=== PATIENT | female | born 1970 | race American Indian/Alaskan Native ===

== ENCOUNTER 2019-06-09 14:03 | Inpatient (IN) | payer BC, OTHER ==
--- NOTE | 2019-06-09 15:22 | XRay Report ---
CHEST 1 VIEW INDICATION / CLINICAL INFORMATION: Chest Pain. COMPARISON: None available. FINDINGS: SUPPORT DEVICES: None. HEART / MEDIASTINUM: No significant abnormality. LUNGS / PLEURA: No significant pulmonary or pleural abnormality. No pneumothorax. ADDITIONAL FINDINGS: No significant additional findings. IMPRESSION: No acute pulmonary or pleural abnormality Signer Name: Manfred Zimmerman MD FACR Signed: 06/09/2019 3:18 PM Workstation Name: [id number]
[2019-06-09 15:23] LABS: Basophils # (Auto) 0.1 K/mm3 (0.0-0.1); Basophils % (Auto) 0.9 % (0.0-1.8); Eosinophils # (Auto) 0.2 K/mm3 (0.0-0.4); Hematocrit 46.4 % (30.3-42.9); Hemoglobin 14.9 gm/dl (10.1-14.3); Lymphocytes # (Auto) 3.6 K/mm3 (1.2-5.4); Lymphocytes % (Auto) 47.3 % (13.4-35.0); Mean Corpuscular HGB Conc 32 % (30-34); Mean Corpuscular Volume 82 fl (79-97); Monocytes # (Auto) 0.6 K/mm3 (0.0-0.8); Monocytes % (Auto) 8.3 % (0.0-7.3); Red Blood Count 5.65 M/mm3 (3.65-5.03)
[2019-06-09 15:25] LABS: Platelet Count 170 K/mm3 (140-440)
[2019-06-09 15:38] LABS: BUN/Creatinine Ratio 16; Blood Urea Nitrogen 13 mg/dL (7-17); Calcium 9.5 mg/dL (8.4-10.2); Hemolysis Index 31
[2019-06-09] MEDS ORDERED: NORCO 5/325 PO ONE (15:56)
[2019-06-09] MEDS ORDERED: APRESOLINE IV ONE (15:57)
--- NOTE | 2019-06-09 16:00 | Emergency Department Report ---
ED Chest Pain HPI - General Chief Complaint: Chest Pain Stated Complaint: CHEST/BACK PAIN Time Seen by Provider: 06/09/19 15:21 Source: patient Mode of arrival: Ambulatory Limitations: No Limitations - History of Present Illness Initial Comments: 48-year-old -[place] female patient with history of breast cancer, hypertension, PE presents with complaints of right-sided chest pain for through to her back with shortness of breath yesterday. She reports pain began suddenly when she lifted her right arm. And with deep breathing, right arm mov ement, and ambulation. She states intermittent lower leg swelling greater than 1 month however denies any recent long travel or extended periods of sitting. No recent surgeries. Mother has history of heart disease. Patient denies any previous history of MN/CVA. Patient states she was taken off of antihypertensives one year ago due to having good blood pressure control. Patient also was taken off of blood thinners at that time per patient. Patient states the pain feels the same as when she had a PE last year. MD Complaint: chest pain -: Sudden Pain Location: right chest Quality: sharp Consistency: constant Improves With: nothing Other Symptoms: denies: cough, fever, syncope, palpitations - Related Data Previous Rx's Medication Instructions Recorded Last Taken Type Aspirin [Aspirin BABY CHEW TAB] 81 mg PO QDAY #30 tab.chew 06/12/19 Unknown Rx AtorvaSTATin [Lipitor] 40 mg PO QHS #30 tablet 06/12/19 Unknown Rx Lisinopril [Zestril TAB] 20 mg PO QDAY #30 tablet 06/12/19 Unknown Rx amLODIPine 10 mg PO QDAY #30 tablet 06/12/19 Unknown Rx hydrALAZINE [Apresoline TAB] 50 mg PO BID #90 tablet 06/12/19 Unknown Rx Allergies Allergy/AdvReac Type Severity Reaction Status Date / Time naproxen Allergy Anaphylaxis Verified 06/09/19 14:04 Heart Score - HEART Score History: Moderately suspicious EKG: Non-specific Age: 45-65 Risk factors: > 3 risk factors or hx of atherosclerotic disease Troponin: < normal limit HEART Score: 5 - Critical Actions Critical Actions: 4-6 pts:12-16.6% risk of adverse cardiac event. Should be admitted ED Review of Systems ROS: Stated complaint: CHEST/BACK PAIN Other details as noted in HPI Comment: All other systems reviewed and negative Constitutional: denies: chills, fever Eyes: denies: vision change Respiratory: orthopnea, shortness of breath, SOB with exertion, SOB at rest. denies: cough, wheezing Cardiovascular: chest pain, palpitations, dyspnea on exertion. denies: edema, syncope Gastrointestinal: denies: abdominal pain, nausea, vomiting Musculoskeletal: denies: back pain, joint swelling, arthralgia Skin: denies: rash, lesions Neurological: denies: headache, weakness, numbness, paresthesias, confusion, abnormal gait Psychiatric: denies: anxiety, depression Hematological/Lymphatic: denies: easy bleeding, easy bruising ED Past Medical Hx - Past Medical History Previous Medical History?: Yes Hx Pulmonary Embolism: Yes Hx of Cancer: Yes (breast) - Surgical History Past Surgical History?: Yes Hx Breast Surgery: Yes (bilateral masectomy) Additional Surgical History: hysterectomy - Social History Smoking Status: Never Smoker Substance Use Type: Alcohol - Medications Home Medications: Home Medications Medication Instructions Recorded Confirmed Last Taken Type Aspirin [Aspirin BABY CHEW TAB] 81 mg PO QDAY #30 tab.chew 06/12/19 Unknown Rx AtorvaSTATin [Lipitor] 40 mg PO QHS #30 tablet 06/12/19 Unknown Rx Lisinopril [Zestril TAB] 20 mg PO QDAY #30 tablet 06/12/19 Unknown Rx amLODIPine 10 mg PO QDAY #30 tablet 06/12/19 Unknown Rx hydrALAZINE [Apresoline TAB] 50 mg PO BID #90 tablet 06/12/19 Unknown Rx ED Physical Exam - General Limitations: No Limitations General appearance: alert, in no apparent distress - Head Head exam: Present: atraumatic, normocephalic - Eye Eye exam: Present: normal appearance - ENT ENT exam: Present: mucous membranes moist - Neck Neck exam: Present: normal inspection - Respiratory Respiratory exam: Present: chest wall tenderness (right parasternal ), decreased breath sounds. Absent: normal lung sounds bilaterally, respiratory distress, wheezes, rales, rhonchi - Cardiovascular Cardiovascular Exam: Present: regular rate, normal rhythm, normal heart sounds. Absent: systolic murmur, diastolic murmur, rubs, gallop - GI/Abdominal GI/Abdominal exam: Present: soft, normal bowel sounds. Absent: distended, tenderness, guarding, rebound, rigid - Extremities Exam Extremities exam: Present: normal inspection, full ROM, calf tenderness (bilateral). Absent: pedal edema, joint swelling - Back Exam Back exam: Present: normal inspection - Neurological Exam Neurological exam: Present: alert, oriented X3 - Psychiatric Psychiatric exam: Present: normal affect, normal mood - Skin Skin exam: Present: warm, dry, intact, normal color. Absent: rash ED Course Vital Signs 06/09/19 06/09/19 06/09/19 14:14 14:16 14:22 Temperature 98.6 F 98.6 F Pulse Rate 65 62 Respiratory 16 18 16 Rate Blood Pressure 214/142 214/142 Blood Pressure [Left] O2 Sat by Pulse 99 99 Oximetry 06/09/19 06/09/19 06/09/19 16:00 16:09 16:10 Temperature Pulse Rate 75 69 Respiratory 12 20 Rate Blood Pressure 204/153 210/150 Blood Pressure [Left] O2 Sat by Pulse 97 Oximetry 06/09/19 06/09/19 06/09/19 16:30 16:50 17:00 Temperature Pulse Rate 75 69 83 Respiratory 19 17 16 Rate Blood Pressure 168/100 168/100 168/99 Blood Pressure [Left] O2 Sat by Pulse 98 99 98 Oximetry 06/09/19 06/09/19 06/09/19 17:10 17:16 17:20 Temperature Pulse Rate 76 82 83 Respiratory 17 18 19 Rate Blood Pressure 168/99 168/99 Blood Pressure 154/109 [Left] O2 Sat by Pulse 97 98 98 Oximetry 06/09/19 06/09/19 06/09/19 17:30 19:14 19:50 Temperature Pulse Rate 68 83 99 H Respiratory 16 16 21 Rate Blood Pressure 154/109 154/109 Blood Pressure 168/99 [Left] O2 Sat by Pulse 97 98 Oximetry 06/09/19 06/09/19 20:01 22:17 Temperature 98.0 F Pulse Rate 101 H 72 Respiratory 35 H 18 Rate Blood Pressure 154/109 171/121 Blood Pressure [Left] O2 Sat by Pulse 100 Oximetry ED Medical Decision Making - Lab Data Result diagrams: 06/10/19 05:12 06/10/19 05:12 Lab Results 06/09/19 06/09/19 06/09/19 Range/Units 14:49 14:49 15:27 WBC 7.7 (4.5-11.0) K/mm3 RBC 5.65 H (3.65-5.03) M/mm3 Hgb 14.9 H (10.1-14.3) gm/dl Hct 46.4 H (30.3-42.9) % MCV 82 (79-97) fl MCH 26 L (28-32) pg MCHC 32 (30-34) % RDW 14.0 (13.2-15.2) % Plt Count 170 (140-440) K/mm3 Lymph % (Auto) 47.3 H (13.4-35.0) % [place]elia % (Auto) 8.3 H (0.0-7.3) % Eos % (Auto) 2.0 (0.0-4.3) % Baso % (Auto) 0.9 (0.0-1.8) % Lymph # 3.6 (1.2-5.4) K/mm3 Amelia # 0.6 (0.0-0.8) K/mm3 Eos # 0.2 (0.0-0.4) K/mm3 Baso # 0.1 (0.0-0.1) K/mm3 Seg Neutrophils % 41.5 (40.0-70.0) % Seg Neutrophils # 3.2 (1.8-7.7) K/mm3 D-Dimer 406.04 H (0-234) ng/mlDDU Sodium 139 (137-145) mmol/L Potassium 3.8 (3.6-5.0) mmol/L Chloride 103.1 (98-107) mmol/L Carbon Dioxide 20 L (22-30) mmol/L Anion Gap 20 mmol/L BUN 13 (7-17) mg/dL Creatinine 0.8 (0.7-1.2) mg/dL Estimated GFR > 60 ml/min BUN/Creatinine Ratio 16 % Glucose 86 (65-100) mg/dL Calcium 9.5 (8.4-10.2) mg/dL Troponin T < 0.010 (0.00-0.029) ng/mL 06/09/19 Range/Units 17:07 WBC (4.5-11.0) K/mm3 RBC (3.65-5.03) M/mm3 Hgb (10.1-14.3) gm/dl Hct (30.3-42.9) % MCV (79-97) fl MCH (28-32) pg MCHC (30-34) % RDW (13.2-15.2) % Plt Count (140-440) K/mm3 Lymph % (Auto) (13.4-35.0) % Amelia % (Auto) (0.0-7.3) % Eos % (Auto) (0.0-4.3) % Baso % (Auto) (0.0-1.8) % Lymph # (1.2-5.4) K/mm3 Amelia # (0.0-0.8) K/mm3 Eos # (0.0-0.4) K/mm3 Baso # (0.0-0.1) K/mm3 Seg Neutrophils % (40.0-70.0) % Seg Neutrophils # (1.8-7.7) K/mm3 D-Dimer (0-234) ng/mlDDU Sodium (137-145) mmol/L Potassium (3.6-5.0) mmol/L Chloride (98-107) mmol/L Carbon Dioxide (22-30) mmol/L Anion Gap mmol/L BUN (7-17) mg/dL Creatinine (0.7-1.2) mg/dL Estimated GFR ml/min BUN/Creatinine Ratio % Glucose (65-100) mg/dL Calcium (8.4-10.2) mg/dL Troponin T < 0.010 (0.00-0.029) ng/mL - Radiology Data Chest x-ray impression; no acute pulmonary or pleural abnormality - Medical Decision Making He shouldn't here with right-sided chest pain and shortness of breath yesterday. Patient has history of multiple PEs and DVTs. Not currently on anticoagulation. No respiratory distress observed. Patient satting 100% on room air. CTA chest. Patient has a heart score 5. Patient handed off to [facility]ina pending CT results Critical care attestation.: If time is entered above; I have spent that time in minutes in the direct care of this critically ill patient, excluding procedure time. ED Disposition Clinical Impression: Chest pain in adult, Shortness of breath, History of pulmonary embolism Disposition: DC- TO HOME OR SELFCARE Is pt being admited?: Yes Condition: Stable
[2019-06-09] MEDS ORDERED: PEPCID IV ONE (16:18)
[2019-06-09] MEDS ORDERED: NITROSTAT SL PRN (16:18)
[2019-06-09] MEDS ORDERED: NACL 0.9% 500 ML 500 ML IV ONE (16:18)
--- NOTE | 2019-06-09 16:22 | Event Note ---
Date of service: 06/09/19 Face to Face: This is a 48-year-old female, recently moved here from [place], distant history of hysterectomy, reports multiple pulmonary emboli from 2011 through 2018, reports history of right-sided partial mastectomy secondary to "emergency breast cancer", states not currently on chemotherapy or radiation, states no IVC filter, states not currently on anticoagulation, presenting with central chest wall pain that is pleuritic, that radiates to the back. She is also found to be hypertensive. Endorses family history of heart disease on the maternal side. Patient at moderate risk for major adverse cardiac event as per the heart score. Blood pressure currently 168, patient appears to be somewhat comfortable. Has reproducible chest wall tenderness. CT scan chest is pending at this time. I troponin negative 1. EKG is reportedly not consistent with ST elevation myocardial infarction. Disp osition is per CT scan, will likely require admission for blood pressure control, cardiac risk stratification. We will withhold empiric anticoagulation at this time until aortic dissection is ruled out by CAT scan. Aortic dissection is unlikely at this time, however, prefer objective imaging to be resulted. Vital Signs 06/09/19 06/09/19 06/09/19 14:14 14:16 14:22 Temperature 98.6 F 98.6 F Pulse Rate 65 62 Respiratory 16 18 16 Rate Blood Pressure 214/142 214/142 O2 Sat by Pulse 99 99 Oximetry 06/09/19 06/09/19 06/09/19 16:00 16:09 16:10 Temperature Pulse Rate 75 69 Respiratory 12 20 Rate Blood Pressure 204/153 210/150 O2 Sat by Pulse 97 Oximetry 06/09/19 16:30 Temperature Pulse Rate 75 Respiratory 19 Rate Blood Pressure 168/100 O2 Sat by Pulse 98 Oximetry Lab Results 06/09/19 06/09/19 06/09/19 Range/Units 14:49 14:49 15:27 WBC 7.7 (4.5-11.0) K/mm3 RBC 5.65 H (3.65-5.03) M/mm3 Hgb 14.9 H (10.1-14.3) gm/dl Hct 46.4 H (30.3-42.9) % MCV 82 (79-97) fl MCH 26 L (28-32) pg MCHC 32 (30-34) % RDW 14.0 (13.2-15.2) % Plt Count 170 (140-440) K/mm3 Lymph % (Auto) 47.3 H (13.4-35.0) % [place] % (Auto) 8.3 H (0.0-7.3) % Eos % (Auto) 2.0 (0.0-4.3) % Baso % (Auto) 0.9 (0.0-1.8) % Lymph # 3.6 (1.2-5.4) K/mm3 [place] # 0.6 (0.0-0.8) K/mm3 Eos # 0.2 (0.0-0.4) K/mm3 Baso # 0.1 (0.0-0.1) K/mm3 Seg Neutrophils % 41.5 (40.0-70.0) % Seg Neutrophils # 3.2 (1.8-7.7) K/mm3 D-Dimer 406.04 H (0-234) ng/mlDDU Sodium 139 (137-145) mmol/L Potassium 3.8 (3.6-5.0) mmol/L Chloride 103.1 (98-107) mmol/L Carbon Dioxide 20 L (22-30) mmol/L Anion Gap 20 mmol/L BUN 13 (7-17) mg/dL Creatinine 0.8 (0.7-1.2) mg/dL Estimated GFR > 60 ml/min BUN/Creatinine Ratio 16 % Glucose 86 (65-100) mg/dL Calcium 9.5 (8.4-10.2) mg/dL Troponin T < 0.010 (0.00-0.029) ng/mL
--- NOTE | 2019-06-09 18:49 | Cat Scan Report ---
CTA CHEST WITH IV CONTRAST INDICATION / CLINICAL INFORMATION: chest pain, SOB, + dimer. TECHNIQUE: Axial CT images were obtained through the chest after injection of 100 cc Omnipaque 350 milligrams pe rcent IV contrast. 3 plane MIP and/or 3D reconstructions were produced. All CT scans at this location are performed using CT dose reduction for ALARA by means of automated exposure control. COMPARISON: None available. FINDINGS: PULMONARY ARTERIES: No pulmonary emboli. THORACIC AORTA: No significant abnormality. HEART: No significant abnormality. CORONARY ARTERIES: No significant calcification. PLEURA: No pleural effusion. No pneumothorax. LYMPH NODES: No significant adenopathy. LUNGS: No acute air space or interstitial disease. ADDITIONAL FINDINGS: None. UPPER ABDOMEN: No acute findings. SKELETAL STRUCTURES: No significant osseous abnormality. IMPRESSION: 1. No CT evidence for pulmonary embolism. 2. No acute findings. Signer Name: Abel Chavez MD Signed: 06/09/2019 6:45 PM Workstation Name: [id number]
--- NOTE | 2019-06-09 20:05 | Vascular Lab Report ---
BILATERAL DUPLEX DOPPLER LOWER EXTREMITY VEINS INDICATION: pain, shortness of breath, history of thrombosis TECHNIQUE: Duplex doppler imaging was performed through the veins of both lower extremities using corie ous compression and other maneuvers. COMPARISON: None available. FINDINGS: Right Common Femoral vein: Negative. Right Superficial Femoral vein: Negative. Right Popliteal vein: Negative. Right Calf veins: Difficult to evaluate Left Common Femoral vein: Negative. Left Superficial Femoral vein: Negative. Left Popliteal vein: Negative. Left Calf veins: Difficult to evaluate Additional findings: None. IMPRESSION: No sonographic evidence for DVT in either lower extremity. Calf veins are difficult to ev aluate. Signer Name: Macario Francis MD Signed: 06/09/2019 8:01 PM Workstation Name: [id number]
[2019-06-09] MEDS ORDERED: TYLENOL ONE (20:23)
[2019-06-09] MEDS ORDERED: TYLENOL PO ONE (20:29)
[2019-06-09] MEDS ORDERED: TYLENOL PO PRN (20:36)
[2019-06-09] MEDS ORDERED: SODIUM CHLORIDE FLUSH SYRINGE 10 ML IV PRN (20:36)
[2019-06-09] MEDS ORDERED: PROVENTIL IH PRN (20:36)
[2019-06-09] MEDS ORDERED: MORPHINE IV PRN (20:38)
--- NOTE | 2019-06-09 21:47 | History and Physical Report ---
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 Patient states that she has been experiencing constant right sided chest pain with radiation to right side of back, and right upper extremity for the past day. She describes the pain as a sharp stabbing feeling. She rates the pain 8/10. Her pain is associated with numbness of the right upper extremity. Her pain is aggravated with movement of the right upper extremity and relieved with rest and immobilization of the right upper extremity. Patient states that she has had chest pain and cardiac workup in the past, which includes a treadmill stress test which was done in December of this year at [facility] in [place], [place]. Per patient she is unsure of results because she not instructed to follow-up and did not go back for further evaluation. Additionally patient complains of shortness of breath which is worse with exertion. Pt also complains of painless intermittent bilateral lower extremity edema for the past 6weeks. Patient states that she had similar symptoms in the past and was diagnosed with pulmonary embolism/DVT. Admits: nausea, and emesis x2, noncompliance with antihypertensive treatment, noncompliance with anti-coagulation Denies: Headache, fever, visual disturbances, gait dysfunction, or recent sick contacts Past History Past Medical History: cancer (breasts), DVT, hypertension, pulmonary embolism (not currently on anticoagulation, previously on Coumadin last dose 04/2018) Past Surgical History: hysterectomy, mastectomy (bilateral) Social history: lives with family (recently relocated from [facility]) Family history: no significant family history Medications and Allergies Allergies Allergy/AdvReac Type Severity Reaction Status Date / Time naproxen Allergy Anaphylaxis Verified 06/09/19 14:04 Home Medications Medication Instructions Recorded Confirmed Last Taken Type No Known Home Medications [No 06/09/19 06/09/19 Unknown History Reported Home Medications] Active Meds: Active Medications Acetaminophen (Tylenol) 650 mg PO Q4H PRN PRN Reason: Pain MILD(1-3)/Fever >100.5/LEMUS Albuterol (Proventil) 2.5 mg IH Q3HRT PRN PRN Reason: Shortness Of Breath Aspirin (Baby Aspirin) 81 mg PO QDAY SAMARA Atorvastatin Calcium (Lipitor) 40 mg PO QHS SAMARA Enoxaparin Sodium (Lovenox) 40 mg SUB-Q QDAY SAMARA Hydralazine HCl (Apresoline) 10 mg IV Q4HR PRN PRN Reason: Blood Pressure Hydromorphone HCl (Dilaudid) 0.5 mg IV Q3H PRN PRN Reason: Pain , Severe (7-10) Sodium Chloride (Nacl 0.9% 1000 Ml) 1,000 mls @ 75 mls/hr IV DIRECT SAMARA Stop: 06/10/19 10:00 Morphine Sulfate (Morphine) 2 mg IV Q4H PRN PRN Reason: Pain, Moderate (4-6) Nitroglycerin (Nitrostat) 0.4 mg SL .Q5MIN PRN PRN Reason: Chest Pain Ondansetron HCl (Zofran) 4 mg IV Q6H PRN PRN Reason: Nausea And Vomiting Sodium Chloride (Sodium Chloride Flush Syringe 10 Ml) 10 ml IV BID SAMARA Sodium Chloride (Sodium Chloride Flush Syringe 10 Ml) 10 ml IV PRN PRN PRN Reason: LINE FLUSH Review of Systems All systems: negative Cardiovascular: chest pain (right-sided with radiation to right upper extremity), palpitations, lightheadedness, shortness of breath, dyspnea on exertion Gastrointestinal: nausea, vomiting (x2) Exam - Physical Exam Narrative exam: General appearance: Present: No acute distress, alert and oriented x3, all developed, well-nourished, adult female - EENT Eyes: Present: PERRL, EOM intact ENT: hearing intact, normal dentition - Neck Neck: Present: supple, normal ROM - Respiratory Respiratory effort: Non-labored Respiratory: bilateral: CTA - Cardiovascular Heart rate:67 (bpm) Rhythm:SR Heart Sounds: Present: S1, S2. - Extremities Extremities: no ischemia, pulses intact - Peripheral Assessment Peripheral Pulses: within normal limits - Abdominal General gastrointestinal: soft, non-tender, normal bowel sounds, heme positive - Integumentary Integumentary: Present: warm, dry - Musculoskeletal Musculoskeletal: able to move all extremities -Neurological Neurological: CN II-XII grossly intact - Psychiatric Psychiatric: cooperative - Constitutional Vitals: Temp Pulse Resp BP Pulse Ox 98.6 F 83 16 168/99 98 06/09/19 14:22 06/09/19 19:14 06/09/19 19:14 06/09/19 19:14 06/09/19 19:14 Results - Labs CBC & Chem 7: 06/09/19 14:49 06/09/19 14:49 Labs: Laboratory Last Values WBC 7.7 K/mm3 (4.5-11.0) 06/09/19 14:49 RBC 5.65 M/mm3 (3.65-5.03) H 06/09/19 14:49 Hgb 14.9 gm/dl (10.1-14.3) H 06/09/19 14:49 Hct 46.4 % (30.3-42.9) H 06/09/19 14:49 MCV 82 fl (79-97) 06/09/19 14:49 MCH 26 pg (28-32) L 06/09/19 14:49 MCHC 32 % (30-34) 06/09/19 14:49 RDW 14.0 % (13.2-15.2) 06/09/19 14:49 Plt Count 170 K/mm3 (140-440) 06/09/19 14:49 Lymph % (Auto) 47.3 % (13.4-35.0) H 06/09/19 14:49 Angelina % (Auto) 8.3 % (0.0-7.3) H 06/09/19 14:49 Eos % (Auto) 2.0 % (0.0-4.3) 06/09/19 14:49 Baso % (Auto) 0.9 % (0.0-1.8) 06/09/19 14:49 Lymph # 3.6 K/mm3 (1.2-5.4) 06/09/19 14:49 [place] # 0.6 K/mm3 (0.0-0.8) 06/09/19 14:49 Eos # 0.2 K/mm3 (0.0-0.4) 06/09/19 14:49 Baso # 0.1 K/mm3 (0.0-0.1) 06/09/19 14:49 Seg Neutrophils % 41.5 % (40.0-70.0) 06/09/19 14:49 Seg Neutrophils # 3.2 K/mm3 (1.8-7.7) 06/09/19 14:49 D-Dimer 406.04 ng/mlDDU (0-234) H 06/09/19 15:27 Sodium 139 mmol/L (137-145) 06/09/19 14:49 Potassium 3.8 mmol/L (3.6-5.0) 06/09/19 14:49 Chloride 103.1 mmol/L (98-107) 06/09/19 14:49 Carbon Dioxide 20 mmol/L (22-30) L 06/09/19 14:49 Anion Gap 20 mmol/L 06/09/19 14:49 BUN 13 mg/dL (7-17) 06/09/19 14:49 Creatinine 0.8 mg/dL (0.7-1.2) 06/09/19 14:49 Estimated GFR > 60 ml/min 06/09/19 14:49 BUN/Creatinine Ratio 16 % 06/09/19 14:49 Glucose 86 mg/dL (65-100) 06/09/19 14:49 Calcium 9.5 mg/dL (8.4-10.2) 06/09/19 14:49 Troponin T < 0.010 ng/mL (0.00-0.029) 06/09/19 20:07 - Imaging and Cardiology Imaging and Cardiology: CT angio Chest: FINDINGS: PULMONARY ARTERIES: No pulmonary emboli. THORACIC AORTA: No significant abnormality. HEART: No significant abnormality. CORONARY ARTERIES: No significant calcification. PLEURA: No pleural effusion. No pneumothorax. LYMPH NODES: No significant adenopathy. LUNGS: No acute air space or interstitial disease. ADDITIONAL FINDINGS: None. UPPER ABDOMEN: No acute findings. SKELETAL STRUCTURES: No significant osseous abnormality. IMPRESSION: 1. No CT evidence for pulmonary embolism. 2. No acute findings. BLE Venous Doppler: FINDINGS: Right Common Femoral vein: Negative. Right Superficial Femoral vein: Negative. Right Popliteal vein: Negative. Right Calf veins: Difficult to evaluate Left Common Femoral vein: Negative. Left Superficial Femoral vein: Negative. Left Popliteal vein: Negative. Left Calf veins: Difficult to evaluate Additional findings: None. IMPRESSION: No sonographic evidence for DVT in either lower extremity. Calf veins are difficult to evaluate. 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 Hypertensive urgency -BP on admission 210/150 -Hx Hypertension -Non-compliance with antihypertensive meds -Continue to monitor BP -Start Norvasc -IV antihypertensive when necessary Acute atypical Chest Pain -Likely secondary to coronary artery vasospasm -Initiate chest pain protocol -Continuous telemetry monitoring -Continue supportive care -Pain mgmt -Troponin neg x3 -On ASA and Statin -Per pt has had stress test in December 2018 in [place], but doesn't know results, and did not follow up -Will attempt to obtain medical records from outside facility -Will defer additional workup per cardiology recommendations -Cardiology consulted Elevated D-dimer -On admission 406.04 -CTA negative for PE Hx of DVT -C/o intermittent bilateral lower extremity edema >1 month -Bilateral lower extremity Doppler negative for DVT Hx of PE -Presently not on anticoagulation -Previously on Coumadin, Lasix dose taken 04/2018 -Per pt unsure why therapy was discontinued DVT PPX -On Lovenox Advance Directives: No VTE prophylaxis?: Mechanical Plan of care discussed with patient/family: Yes <LLOYD BAUER - Last Filed: 06/09/19 22:35> History of Present Illness Date of admission: 06/09/19 20:37 Medications and Allergies Active Meds: Active Medications Acetaminophen (Tylenol) 650 mg PO Q4H PRN PRN Reason: Pain MILD(1-3)/Fever >100.5/LEMUS Albuterol (Proventil) 2.5 mg IH Q3HRT PRN PRN Reason: Shortness Of Breath Amlodipine Besylate (Norvasc) 10 mg PO QDAY SAMARA Aspirin (Baby Aspirin) 81 mg PO QDAY SAMARA Atorvastatin Calcium (Lipitor) 40 mg PO QHS SAMARA Enoxaparin Sodium (Lovenox) 40 mg SUB-Q QDAY SAMARA Hydralazine HCl (Apresoline) 10 mg IV Q4HR PRN PRN Reason: Blood Pressure Hydromorphone HCl (Dilaudid) 0.5 mg IV Q3H PRN PRN Reason: Pain , Severe (7-10) Sodium Chloride (Nacl 0.9% 1000 Ml) 1,000 mls @ 75 mls/hr IV DIRECT SAMARA Stop: 06/10/19 10:00 Morphine Sulfate (Morphine) 2 mg IV Q4H PRN PRN Reason: Pain, Moderate (4-6) Nitroglycerin (Nitrostat) 0.4 mg SL .Q5MIN PRN PRN Reason: Chest Pain Ondansetron HCl (Zofran) 4 mg IV Q6H PRN PRN Reason: Nausea And Vomiting Last Admin: 06/09/19 22:01 Dose: 4 mg Documented by: Sodium Chloride (Sodium Chloride Flush Syringe 10 Ml) 10 ml IV BID [facility] Sodium Chloride (Sodium Chloride Flush Syringe 10 Ml) 10 ml IV PRN PRN PRN Reason: LINE FLUSH Exam - Constitutional Vitals: Temp Pulse Resp BP Pulse Ox 98.0 F 81 18 171/121 100 06/09/19 22:17 06/09/19 22:17 06/09/19 22:17 06/09/19 22:17 06/09/19 22:17 Results - Labs CBC & Chem 7: 06/09/19 14:49 06/09/19 14:49 Labs: Laboratory Last Values WBC 7.7 K/mm3 (4.5-11.0) 06/09/19 14:49 RBC 5.65 M/mm3 (3.65-5.03) H 06/09/19 14:49 Hgb 14.9 gm/dl (10.1-14.3) H 06/09/19 14:49 Hct 46.4 % (30.3-42.9) H 06/09/19 14:49 MCV 82 fl (79-97) 06/09/19 14:49 MCH 26 pg (28-32) L 06/09/19 14:49 MCHC 32 % (30-34) 06/09/19 14:49 RDW 14.0 % (13.2-15.2) 06/09/19 14:49 Plt Count 170 K/mm3 (140-440) 06/09/19 14:49 Lymph % (Auto) 47.3 % (13.4-35.0) H 06/09/19 14:49 Angelina % (Auto) 8.3 % (0.0-7.3) H 06/09/19 14:49 Eos % (Auto) 2.0 % (0.0-4.3) 06/09/19 14:49 Baso % (Auto) 0.9 % (0.0-1.8) 06/09/19 14:49 Lymph # 3.6 K/mm3 (1.2-5.4) 06/09/19 14:49 Angelina # 0.6 K/mm3 (0.0-0.8) 06/09/19 14:49 Eos # 0.2 K/mm3 (0.0-0.4) 06/09/19 14:49 Baso # 0.1 K/mm3 (0.0-0.1) 06/09/19 14:49 Seg Neutrophils % 41.5 % (40.0-70.0) 06/09/19 14:49 Seg Neutrophils # 3.2 K/mm3 (1.8-7.7) 06/09/19 14:49 D-Dimer 406.04 ng/mlDDU (0-234) H 06/09/19 15:27 Sodium 139 mmol/L (137-145) 06/09/19 14:49 Potassium 3.8 mmol/L (3.6-5.0) 06/09/19 14:49 Chloride 103.1 mmol/L (98-107) 06/09/19 14:49 Carbon Dioxide 20 mmol/L (22-30) L 06/09/19 14:49 Anion Gap 20 mmol/L 06/09/19 14:49 BUN 13 mg/dL (7-17) 06/09/19 14:49 Creatinine 0.8 mg/dL (0.7-1.2) 06/09/19 14:49 Estimated GFR > 60 ml/min 06/09/19 14:49 BUN/Creatinine Ratio 16 % 06/09/19 14:49 Glucose 86 mg/dL (65-100) 06/09/19 14:49 Calcium 9.5 mg/dL (8.4-10.2) 06/09/19 14:49 Troponin T < 0.010 ng/mL (0.00-0.029) 06/09/19 20:07 Assessment and Plan Assessment and plan: 48-year-old woman with a history of hypertension, breast cancer, previous pulmonary emboli off Coumadin comes emergency room with complaints of chest pain, shortness of breath. Chest pain is right-sided which she describes as sharp pain going to the back associated with shortness of breath. She had a stress test in December which was negative. Blood pressure is uncontrolled, agree with cardiology consult, restart antihypertensives. Medical records from [facility]
[2019-06-09] MEDS ORDERED: ZOFRAN ONE (22:01)
[2019-06-09] MEDS: ZOFRAN IV PRN (22:01)
[2019-06-09] MEDS: SODIUM CHLORIDE FLUSH SYRINGE 10 ML IV SCH (23:00)
[2019-06-09] MEDS: DILAUDID IV PRN (23:01)
[2019-06-09] MEDS: NACL 0.9% 1000 ML 1,000 ML IV SCH (23:14)
[2019-06-10 05:34] LABS: Basophils # (Auto) 0.1 K/mm3 (0.0-0.1); Basophils % (Auto) 0.9 % (0.0-1.8); Eosinophils % (Auto) 0.6 % (0.0-4.3); Hematocrit 43.9 % (30.3-42.9); Hemoglobin 14.5 gm/dl (10.1-14.3); Lymphocytes # (Auto) 2.9 K/mm3 (1.2-5.4); Lymphocytes % (Auto) 39.3 % (13.4-35.0); Mean Corpuscular HGB Conc 33 % (30-34); Mean Corpuscular Volume 80 fl (79-97); Monocytes # (Auto) 0.5 K/mm3 (0.0-0.8); Monocytes % (Auto) 7.5 % (0.0-7.3); Red Blood Count 5.47 M/mm3 (3.65-5.03); Red Cell Distribution Width 13.9 % (13.2-15.2)
[2019-06-10 06:02] LABS: BUN/Creatinine Ratio 13; Blood Urea Nitrogen 13 mg/dL (7-17); Calcium 9.5 mg/dL (8.4-10.2); Chol/HDL Ratio 3.88 %; HDL Cholesterol 42 mg/dL (40-59); Hemolysis Index 11; LDL Cholesterol,Direct 114 mg/dL (50-130)
[2019-06-10 07:00] LABS: Mean Platelet Volume 9.6 fl (6-12); Platelet Count 161 K/mm3 (140-440)
[2019-06-10] MEDS: BABY ASPIRIN PO SCH (11:03)
[2019-06-10] MEDS: ENOXAPARIN SUB-Q SCH (11:03)
[2019-06-10] MEDS: SODIUM CHLORIDE FLUSH SYRINGE 10 ML IV SCH ×2 (11:04→22:54)
[2019-06-10] MEDS: DILAUDID IV PRN (11:19)
[2019-06-10] MEDS: NACL 0.9% 1000 ML 1,000 ML IV SCH (11:21)
--- NOTE | 2019-06-10 11:37 | Progress Note ---
Assessment and Plan Assessment and plan: --Accelerated Hypertension Closely monitor blood pressures optimize medications --Elevated D-dimer; CTA chest negative for pain in lower extremity venous Doppler negative for DVT --Atypical chest pain; Cardiac enzymes negative, EKG no acute ST changes Patient had recent negative stress test and different hospital 5 months ago Cardiology following, no further ischemic workup during this admission --History of DVT and PE; Patient has not been on anticoagulation for the last 1 year PE and DVT are negative during this admission Will advise the patient to follow with her PMD/hematology For further recommendations regarding anticoagulation if needed --DVT PPX; On Lovenox Monitor clinically and adjust management as needed Plan of care reviewed with the patient and her nurse History Interval history: Patient seen and examined medical records reviewed No new, Events reported by the nursing Admitted for chest pain, continues to have intermittent chest pain Vital signs noted Hospitalist Physical - Constitutional Vitals: Temp Pulse Resp BP Pulse Ox 98.4 F 50 L 20 140/88 99 06/10/19 08:07 06/10/19 11:03 06/10/19 11:19 06/10/19 11:03 06/10/19 08:07 General appearance: Present: no acute distress, well-nourished, obese - EENT Eyes: Present: PERRL, EOM intact - Neck Neck: Present: supple, normal ROM - Respiratory Respiratory effort: normal Respiratory: bilateral: diminished, negative: rales, rhonchi, wheezing - Cardiovascular Rhythm: regular Heart Sounds: Present: S1 & S2 - Extremities Extremities: no ischemia, No edema - Abdominal General gastrointestinal: soft, non-tender, non-distended, normal bowel sounds - Integumentary Integumentary: Present: clear, warm - Psychiatric Psychiatric: appropriate mood/affect, cooperative - Neurologic Neurologic: CNII-XII intact, moves all extremities Results - Labs CBC & Chem 7: 06/10/19 05:12 06/10/19 05:12 Labs: Laboratory Last Values WBC 7.3 K/mm3 (4.5-11.0) 06/10/19 05:12 RBC 5.47 M/mm3 (3.65-5.03) H 06/10/19 05:12 Hgb 14.5 gm/dl (10.1-14.3) H 06/10/19 05:12 Hct 43.9 % (30.3-42.9) H 06/10/19 05:12 MCV 80 fl (79-97) 06/10/19 05:12 MCH 27 pg (28-32) L 06/10/19 05:12 MCHC 33 % (30-34) 06/10/19 05:12 RDW 13.9 % (13.2-15.2) 06/10/19 05:12 Plt Count 161 K/mm3 (140-440) 06/10/19 05:12 Lymph % (Auto) 39.3 % (13.4-35.0) H 06/10/19 05:12 [place] % (Auto) 7.5 % (0.0-7.3) H 06/10/19 05:12 Eos % (Auto) 0.6 % (0.0-4.3) 06/10/19 05:12 Baso % (Auto) 0.9 % (0.0-1.8) 06/10/19 05:12 Lymph # 2.9 K/mm3 (1.2-5.4) 06/10/19 05:12 [place] # 0.5 K/mm3 (0.0-0.8) 06/10/19 05:12 Eos # 0.0 K/mm3 (0.0-0.4) 06/10/19 05:12 Baso # 0.1 K/mm3 (0.0-0.1) 06/10/19 05:12 Seg Neutrophils % 51.7 % (40.0-70.0) 06/10/19 05:12 Seg Neutrophils # 3.8 K/mm3 (1.8-7.7) 06/10/19 05:12 D-Dimer 406.04 ng/mlDDU (0-234) H 06/09/19 15:27 Sodium 141 mmol/L (137-145) 06/10/19 05:12 Potassium 3.4 mmol/L (3.6-5.0) L 06/10/19 05:12 Chloride 102.5 mmol/L (98-107) 06/10/19 05:12 Carbon Dioxide 23 mmol/L (22-30) 06/10/19 05:12 Anion Gap 19 mmol/L 06/10/19 05:12 BUN 13 mg/dL (7-17) 06/10/19 05:12 Creatinine 1.0 mg/dL (0.7-1.2) 06/10/19 05:12 Estimated GFR > 60 ml/min 06/10/19 05:12 BUN/Creatinine Ratio 13 % 06/10/19 05:12 Glucose 99 mg/dL (65-100) 06/10/19 05:12 Calcium 9.5 mg/dL (8.4-10.2) 06/10/19 05:12 Troponin T < 0.010 ng/mL (0.00-0.029) 06/09/19 20:07 Triglycerides 67 mg/dL (2-149) 06/10/19 05:12 Cholesterol 163 mg/dL (50-199) 06/10/19 05:12 LDL Cholesterol Direct 114 mg/dL (50-130) 06/10/19 05:12 HDL Cholesterol 42 mg/dL (40-59) 06/10/19 05:12 Cholesterol/HDL Ratio 3.88 % 06/10/19 05:12 Active Medications - Current Medications Current Medications: Generic Name Dose Route Start Last Admin Trade Name Freq PRN Reason Stop Dose Admin Acetaminophen 650 mg 06/09/19 20:36 Tylenol PO Q4H PRN Pain MILD(1-3)/Fever >100.5/LEMUS Albuterol 2.5 mg 06/09/19 20:36 Proventil IH Q3HRT PRN Shortness Of Breath Amlodipine Besylate 10 mg 06/10/19 10:00 06/10/19 11:03 Norvasc PO 10 mg QDAY SAMARA Administration Aspirin 81 mg 06/10/19 10:00 06/10/19 11:03 Baby Aspirin PO 81 mg QDAY SAMARA Administration Atorvastatin Calcium 40 mg 06/09/19 22:00 06/09/19 23:00 Lipitor PO 40 mg QHS SAMARA Administration Enoxaparin Sodium 40 mg 06/10/19 10:00 06/10/19 11:03 Lovenox SUB-Q 40 mg QDAY SAMARA Administration Hydralazine HCl 10 mg 06/09/19 20:43 Apresoline IV Q4HR PRN Blood Pressure Hydromorphone HCl 0.5 mg 06/09/19 20:38 06/10/19 11:19 Dilaudid IV 0.5 mg Q3H PRN Administration Pain , Severe (7-10) Sodium Chloride 1,000 mls @ 75 mls/hr 06/09/19 21:00 06/10/19 11:21 Nacl 0.9% 1000 Ml IV 06/10/19 10:00 75 mls/hr DIRECT SAMARA Administration Morphine Sulfate 2 mg 06/09/19 20:38 Morphine IV Q4H PRN Pain, Moderate (4-6) Nitroglycerin 0.4 mg 06/09/19 16:18 Nitrostat SL .Q5MIN PRN Chest Pain Ondansetron HCl 4 mg 06/09/19 20:36 06/09/19 22:01 Zofran IV 4 mg Q6H PRN Administration Nausea And Vomiting Sodium Chloride 10 ml 06/09/19 22:00 06/10/19 11:04 Sodium Chloride Flush Syringe 10 Ml IV 10 ml BID SAMARA Administration Sodium Chloride 10 ml 06/09/19 20:36 Sodium Chloride Flush Syringe 10 Ml IV PRN PRN LINE FLUSH
[2019-06-10] MEDS ORDERED: K-DUR PO ONE (12:39)
--- NOTE | 2019-06-10 15:35 | Consultation ---
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 She describes her chest pain as a constant, right sided, stabbing chest pain with radiation to right upper extremity and numbness to right upper extremity. Patient states that she has had chest pain and cardiac workup in the past, which includes a treadmill stress test which was done in December of this year at [facility] in [place], [place]. Per patient this test was normal to her knowledge. Additionally patient complains of shortness of breath which is worse with exertion. Pt denies any prior CAD, AMI or HF. Past History Past Medical History: cancer (breasts), DVT, hypertension, pulmonary embolism (not currently on anticoagulation, previously on Coumadin last dose 04/2018) Past Surgical History: hysterectomy, mastectomy (bilateral) Social history: lives with family (recently relocated from [facility] [place]) Family history: no significant family history Medications and Allergies Allergies Allergy/AdvReac Type Severity Reaction Status Date / Time naproxen Allergy Anaphylaxis Verified 06/09/19 14:04 Home Medications Medication Instructions Recorded Confirmed Last Taken Type No Known Home Medications [No 06/09/19 06/09/19 Unknown History Reported Home Medications] Active Meds: Active Medications Acetaminophen (Tylenol) 650 mg PO Q4H PRN PRN Reason: Pain MILD(1-3)/Fever >100.5/LEMUS Albuterol (Proventil) 2.5 mg IH Q3HRT PRN PRN Reason: Shortness Of Breath Amlodipine Besylate (Norvasc) 10 mg PO QDAY [facility] Last Admin: 06/10/19 11:03 Dose: 10 mg Documented by: Aspirin (Baby Aspirin) 81 mg PO QDAY [facility] Last Admin: 06/10/19 11:03 Dose: 81 mg Documented by: Atorvastatin Calcium (Lipitor) 40 mg PO QHS [facility] Last Admin: 06/09/19 23:00 Dose: 40 mg Documented by: Enoxaparin Sodium (Lovenox) 40 mg SUB-Q QDAY [facility] Last Admin: 06/10/19 11:03 Dose: 40 mg Documented by: Hydralazine HCl (Apresoline) 10 mg IV Q4HR PRN PRN Reason: Blood Pressure Hydromorphone HCl (Dilaudid) 0.5 mg IV Q3H PRN PRN Reason: Pain , Severe (7-10) Last Admin: 06/10/19 11:19 Dose: 0.5 mg Documented by: Morphine Sulfate (Morphine) 2 mg IV Q4H PRN PRN Reason: Pain, Moderate (4-6) Nitroglycerin (Nitrostat) 0.4 mg SL .Q5MIN PRN PRN Reason: Chest Pain Ondansetron HCl (Zofran) 4 mg IV Q6H PRN PRN Reason: Nausea And Vomiting Last Admin: 06/09/19 22:01 Dose: 4 mg Documented by: Sodium Chloride (Sodium Chloride Flush Syringe 10 Ml) 10 ml IV BID SAMARA Last Admin: 06/10/19 11:04 Dose: 10 ml Documented by: Sodium Chloride (Sodium Chloride Flush Syringe 10 Ml) 10 ml IV PRN PRN PRN Reason: LINE FLUSH Review of Systems Constitutional: no weight loss, no weight gain, no fever, no chills, no sweats Ears, nose, mouth and throat: no ear pain, no nose pain, no sinus pressure, no sinus pain Cardiovascular: chest pain, dyspnea on exertion, no orthopnea, no palpitations, no rapid/irregular heart beat, no edema, no syncope, no lightheadedness Respiratory: dyspnea on exertion, no cough, no congestion, no wheezing, no pain on inspiration Gastrointestinal: no abdominal pain, no nausea, no vomiting, no diarrhea, no constipation, no change in bowel habits Genitourinary Female: no pelvic pain, no flank pain, no dysuria, no urinary frequency, no urgency Musculoskeletal: arm numbness/tingling (RUE), no neck stiffness, no neck pain Integumentary: no rash, no pruritis, no redness, no sores, no wounds Neurological: no head injury, no paralysis, no weakness, no parathesias, no seizures, no syncope Psychiatric: no anxiety Endocrine: no cold intolerance, no heat intolerance Hematologic/Lymphatic: no easy bruising, no easy bleeding Allergic/Immunologic: no urticaria, no wheezing Physical Examination Vital Signs Pulse Resp BP Pulse Ox 65 16 214/142 99 06/09/19 14:14 06/09/19 14:14 06/09/19 14:14 06/09/19 14:14 General appearance: no acute distress HEENT: Positive: PERRL, Normocephaly, Mucus Membranes Moist Neck: Positive: neck supple, trachea midline Cardiac: Positive: Reg Rate and Rhythm, S1/S2 Lungs: Positive: Decreased Breath Sounds Neuro: Positive: Grossly Intact Abdomen: Negative: Tender Skin: Negative: Rash Musculoskeletal: No Pain Extremities: Absent: edema Results 06/10/19 05:12 06/10/19 05:12 Lipids 06/10/19 Range/Units 05:12 Triglycerides 67 (2-149) mg/dL Cholesterol 163 (50-199) mg/dL HDL Cholesterol 42 (40-59) mg/dL Cholesterol/HDL Ratio 3.88 % CBC 06/10/19 Range/Units 05:12 WBC 7.3 (4.5-11.0) K/mm3 RBC 5.47 H (3.65-5.03) M/mm3 Hgb 14.5 H (10.1-14.3) gm/dl Hct 43.9 H (30.3-42.9) % Plt Count 161 (140-440) K/mm3 Lymph # 2.9 (1.2-5.4) K/mm3 [place] # 0.5 (0.0-0.8) K/mm3 Eos # 0.0 (0.0-0.4) K/mm3 Baso # 0.1 (0.0-0.1) K/mm3 Comprehensive Metabolic Panel 06/09/19 06/10/19 Range/Units 14:49 05:12 Sodium 139 141 (137-145) mmol/L Potassium 3.8 3.4 L (3.6-5.0) mmol/L Chloride 103.1 102.5 (98-107) mmol/L Carbon Dioxide 20 L 23 (22-30) mmol/L BUN 13 13 (7-17) mg/dL Creatinine 0.8 1.0 (0.7-1.2) mg/dL Glucose 86 99 (65-100) mg/dL Calcium 9.5 9.5 (8.4-10.2) mg/dL - Imaging and Cardiology Echo: pending EKG: report reviewed, image reviewed EKG interpretations - Telemetry EKG Rhythm: Sinus Rhythm - EKG Sinus rhythms and dysrhythmias: sinus rhythm Assessment and Plan Pt presented with c/o atypical cp, AMI ruled out. Chest CTA negative for PE. Patient states that she has had chest pain and cardiac workup in the past, which includes a treadmill stress test which was done in December of this year at [facility] in [place], [place]. Per patient this test was normal to her knowledge. No plans for repeat ischemic evaluation at this time. Obtain echo. Optimize anti-hypertensive regimen. 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 Will defer to primary team. The patient has been seen in conjunction with Dr. WILMAN Garcia who agrees with the assessment and plan of care. - Patient Problems (1) Chest pain Current Visit: Yes Status: Acute (2) History of pulmonary embolism Current Visit: Yes Status: Chronic (3) History of DVT (deep vein thrombosis) Current Visit: Yes Status: Chronic (4) History of breast cancer Current Visit: Yes Status: Chronic (5) HTN (hypertension) Current Visit: Yes Status: Chronic (6) Medical non-compliance Current Visit: Yes Status: Chronic
[2019-06-10] MEDS: APRESOLINE IV PRN ×2 (16:52→18:43)
[2019-06-10] MEDS: ZOFRAN IV PRN (18:51)
--- NOTE | 2019-06-11 08:04 | Discharge Summary ---
Providers - Providers Date of Admission: 06/09/19 20:37 Date of discharge: 06/11/19 Attending physician: BETHANY ROD 06/09/19 Consult to Cardiac Rehabilitation [CONS] Routine Reason For Exam: Phase I 06/09/19 20:38 Consult to Physician [CONS] Routine Comment: Consulting Provider: DANIELLE HERNANDES Physician Instructions: Reason For Exam: chest pain, hx of pe Primary care physician: HEEL SHAVER Hospitalization Condition: Stable Exam - Constitutional Vitals: Temp Pulse Resp BP Pulse Ox 98.4 F 74 16 158/99 100 06/11/19 04:45 06/11/19 04:45 06/11/19 04:45 06/11/19 04:45 06/11/19 04:45 Plan Follow up with: PRIMARY MD JAYA [Primary Care Provider] - 3-5 Days
[2019-06-11] MEDS: ENOXAPARIN SUB-Q SCH (09:11)
[2019-06-11] MEDS: BABY ASPIRIN PO SCH (09:11)
[2019-06-11] MEDS: SODIUM CHLORIDE FLUSH SYRINGE 10 ML IV SCH ×2 (09:12→21:33)
[2019-06-11] MEDS: DILAUDID IV PRN (10:01)
[2019-06-11] MEDS: APRESOLINE IV PRN (10:14)
[2019-06-11] MEDS ORDERED: PERCOCET 5/325 PO PRN (11:11)
--- NOTE | 2019-06-11 12:30 | Progress Note ---
Assessment and Plan Pt presented with c/o atypical cp, AMI ruled out. Chest CTA negative for PE. Patient states that she has had chest pain and cardiac workup in the past, which includes a treadmill stress test which was done in December of this year at [facility] in [place], [place]. Per patient this test was normal to her knowledge. No plans for repeat ischemic evaluation at this time. Obtain echo. Optimize anti-hypertensive regimen. 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 Will defer to primary team. The patient has been seen in conjunction with Dr. Himanshu Garcia who agrees with the assessment and plan of care. - Patient Problems (1) Chest pain Current Visit: Yes Status: Acute (2) History of pulmonary embolism Current Visit: Yes Status: Chronic (3) History of DVT (deep vein thrombosis) Current Visit: Yes Status: Chronic (4) History of breast cancer Current Visit: Yes Status: Chronic (5) Uncontrolled hypertension Current Visit: Yes Status: Chronic (6) Medical non-compliance Current Visit: Yes Status: Chronic Subjective Date of service: 06/11/19 Principal diagnosis: cp;htn Interval history: pt resting in bed, BPs significantly elevated, c/o right-sided chest pain radiating into her back. in SR on tele. Objective Last Vital Signs Temp 98.4 F 06/11/19 04:45 Pulse 82 06/11/19 10:14 Resp 20 06/11/19 10:01 BP 182/126 06/11/19 10:14 Pulse Ox 100 06/11/19 08:56 - Physical Examination General: No Apparent Distress HEENT: Positive: PERRL, Normocephaly, Mucus Membranes Moist Neck: Positive: neck supple, trachea midline Cardiac: Positive: Reg Rate and Rhythm, S1/S2 Lungs: Positive: Decreased Breath Sounds Neuro: Positive: Grossly Intact Abdomen: Negative: Tender Skin: Negative: Rash Musculoskeletal: No Pain Extremities: Absent: edema - Imaging and Cardiology EKG: report reviewed, image reviewed Echo: pending - EKG Sinus rhythms and dysrhythmias: sinus rhythm
--- NOTE | 2019-06-11 12:47 | Progress Note ---
Assessment and Plan Assessment and plan: --Accelerated Hypertension Closely monitor blood pressures optimize medications --Atypical chest pain; Cardiac enzymes negative, EKG no acute ST changes Patient had recent negative stress test and different hospital 5 months ago Cardiology following, no further ischemic workup during this admission --History of DVT and PE; Patient has not been on anticoagulation for the last 1 year PE and DVT are negative during this admission Will advise the patient to follow with her PMD/hematology For further recommendations regarding anticoagulation if needed --Elevated D-dimer; CTA chest negative for pain in lower extremity venous Doppler negative for DVT --DVT PPX; On Lovenox Closely monitor and adjust management as needed Plan of care is reviewed with the patient and her nurse History Interval history: Patient seen and examined medical records reviewed Initiatially planning to DC the patient home,however patient has Uncontrolled hypertension, and cardiology wanted to check echocardiogram Patient feels slightly better Intermittent right-sided chest pain Alert awake oriented Vital signs reviewed Hospitalist Physical - Constitutional Vitals: Temp Pulse Resp BP Pulse Ox 98.4 F 82 20 182/126 100 06/11/19 04:45 06/11/19 10:14 06/11/19 10:01 06/11/19 10:14 06/11/19 08:56 General appearance: Present: no acute distress, well-nourished, obese - EENT Eyes: Present: PERRL, EOM intact - Neck Neck: Present: supple, normal ROM - Respiratory Respiratory effort: normal Respiratory: bilateral: diminished, negative: rales, rhonchi, wheezing - Cardiovascular Rhythm: regular Heart Sounds: Present: S1 & S2 - Extremities Extremities: no ischemia, No edema - Abdominal General gastrointestinal: soft, non-tender, non-distended, normal bowel sounds - Integumentary Integumentary: Present: clear, warm - Psychiatric Psychiatric: appropriate mood/affect, cooperative - Neurologic Neurologic: moves all extremities Results - Labs CBC & Chem 7: 06/10/19 05:12 06/10/19 05:12 Labs: Laboratory Last Values WBC 7.3 K/mm3 (4.5-11.0) 06/10/19 05:12 RBC 5.47 M/mm3 (3.65-5.03) H 06/10/19 05:12 Hgb 14.5 gm/dl (10.1-14.3) H 06/10/19 05:12 Hct 43.9 % (30.3-42.9) H 06/10/19 05:12 MCV 80 fl (79-97) 06/10/19 05:12 MCH 27 pg (28-32) L 06/10/19 05:12 MCHC 33 % (30-34) 06/10/19 05:12 RDW 13.9 % (13.2-15.2) 06/10/19 05:12 Plt Count 161 K/mm3 (140-440) 06/10/19 05:12 Lymph % (Auto) 39.3 % (13.4-35.0) H 06/10/19 05:12 [place] % (Auto) 7.5 % (0.0-7.3) H 06/10/19 05:12 Eos % (Auto) 0.6 % (0.0-4.3) 06/10/19 05:12 Baso % (Auto) 0.9 % (0.0-1.8) 06/10/19 05:12 Lymph # 2.9 K/mm3 (1.2-5.4) 06/10/19 05:12 [place] # 0.5 K/mm3 (0.0-0.8) 06/10/19 05:12 Eos # 0.0 K/mm3 (0.0-0.4) 06/10/19 05:12 Baso # 0.1 K/mm3 (0.0-0.1) 06/10/19 05:12 Seg Neutrophils % 51.7 % (40.0-70.0) 06/10/19 05:12 Seg Neutrophils # 3.8 K/mm3 (1.8-7.7) 06/10/19 05:12 D-Dimer 406.04 ng/mlDDU (0-234) H 06/09/19 15:27 Sodium 141 mmol/L (137-145) 06/10/19 05:12 Potassium 3.4 mmol/L (3.6-5.0) L 06/10/19 05:12 Chloride 102.5 mmol/L (98-107) 06/10/19 05:12 Carbon Dioxide 23 mmol/L (22-30) 06/10/19 05:12 Anion Gap 19 mmol/L 06/10/19 05:12 BUN 13 mg/dL (7-17) 06/10/19 05:12 Creatinine 1.0 mg/dL (0.7-1.2) 06/10/19 05:12 Estimated GFR > 60 ml/min 06/10/19 05:12 BUN/Creatinine Ratio 13 % 06/10/19 05:12 Glucose 99 mg/dL (65-100) 06/10/19 05:12 Calcium 9.5 mg/dL (8.4-10.2) 06/10/19 05:12 Troponin T < 0.010 ng/mL (0.00-0.029) 06/09/19 20:07 Triglycerides 67 mg/dL (2-149) 06/10/19 05:12 Cholesterol 163 mg/dL (50-199) 06/10/19 05:12 LDL Cholesterol Direct 114 mg/dL (50-130) 06/10/19 05:12 HDL Cholesterol 42 mg/dL (40-59) 06/10/19 05:12 Cholesterol/HDL Ratio 3.88 % 06/10/19 05:12 Active Medications - Current Medications Current Medications: Generic Name Dose Route Start Last Admin Trade Name Freq PRN Reason Stop Dose Admin Acetaminophen 650 mg 06/09/19 20:36 06/10/19 22:58 Tylenol PO 650 mg Q4H PRN Administration Pain MILD(1-3)/Fever >100.5/LEMUS Albuterol 2.5 mg 06/09/19 20:36 Proventil IH Q3HRT PRN Shortness Of Breath Amlodipine Besylate 10 mg 06/10/19 10:00 06/11/19 09:11 Norvasc PO 10 mg QDAY [facility] Administration Aspirin 81 mg 06/10/19 10:00 06/11/19 09:11 Baby Aspirin PO 81 mg QDAY [facility] Administration Atorvastatin Calcium 40 mg 06/09/19 22:00 06/10/19 22:54 Lipitor PO 40 mg QHS [facility]ARA Administration Enoxaparin Sodium 40 mg 06/10/19 10:00 06/11/19 09:11 Lovenox SUB-Q 40 mg QDAY [facility] Administration Hydralazine HCl 10 mg 06/09/19 20:43 06/11/19 10:14 Apresoline IV 10 mg Q4HR PRN Administration Blood Pressure Hydralazine HCl 50 mg 06/11/19 11:00 Apresoline PO BID SAMARA Lisinopril 20 mg 06/11/19 11:00 Zestril PO QDAY [facility] Morphine Sulfate 2 mg 06/09/19 20:38 Morphine IV Q4H PRN Pain, Moderate (4-6) Nitroglycerin 0.4 mg 06/09/19 16:18 Nitrostat SL .Q5MIN PRN Chest Pain Ondansetron HCl 4 mg 06/09/19 20:36 06/10/19 18:51 Zofran IV 4 mg Q6H PRN Administration Nausea And Vomiting Oxycodone/Acetaminophen 1 tab 06/11/19 11:11 Percocet 5/325 PO Q6H PRN Pain, Moderate (4-6) Sodium Chloride 10 ml 06/09/19 22:00 06/11/19 09:12 Sodium Chloride Flush Syringe 10 Ml IV 10 ml BID SAMARA Administration Sodium Chloride 10 ml 06/09/19 20:36 Sodium Chloride Flush Syringe 10 Ml IV PRN PRN LINE FLUSH
[2019-06-11] MEDS ORDERED: PHENERGAN PR PRN (15:28)
[2019-06-11] MEDS ORDERED: PHENERGAN PO ONE (15:28)
[2019-06-11] MEDS: ZESTRIL PO SCH (15:38)
[2019-06-11] MEDS: APRESOLINE PO SCH ×2 (15:39→21:30)
[2019-06-12] MEDS: BABY ASPIRIN PO SCH (09:48)
[2019-06-12] MEDS: APRESOLINE PO SCH (09:48)
[2019-06-12] MEDS: ZESTRIL PO SCH (09:48)
[2019-06-12] MEDS: ENOXAPARIN SUB-Q SCH (09:49)
[2019-06-12 12:10] VITALS: BP 147/94
--- NOTE | 2019-06-12 13:21 | Discharge Summary ---
Providers - Providers Date of Admission: 06/11/19 16:13 Date of discharge: 06/12/19 Attending physician: BETHANY ROD 06/09/19 Consult to Cardiac Rehabilitation [CONS] Routine Reason For Exam: Phase I 06/09/19 20:38 Consult to Physician [CONS] Routine Comment: Consulting Provider: DANIELLE HERNANDES Physician Instructions: Reason For Exam: chest pain, hx of pe Primary care physician: INDUSTRIAL TRAINING SPECIALIST Hospitalization Condition: Stable Disposition: DC-01 TO HOME OR SELFCARE Time spent for discharge: 32 min Core Measure Documentation - Palliative Care Palliative Care/ Comfort Measures: Not Applicable - Core Measures Any of the following diagnoses?: none Exam - Constitutional Vitals: Temp Pulse Resp BP Pulse Ox 97.1 F L 109 H 18 147/94 97 06/12/19 10:49 06/12/19 10:49 06/12/19 10:49 06/12/19 10:49 06/12/19 10:49 General appearance: Present: no acute distress, mild distress, well-nourished - EENT Eyes: Present: PERRL, EOM intact - Neck Neck: Present: supple, normal ROM - Respiratory Respiratory effort: normal Respiratory: bilateral: diminished, negative: rales, rhonchi, wheezing - Cardiovascular Rhythm: regular Heart Sounds: Present: S1 & S2 - Extremities Extremities: no ischemia, No edema Peripheral Pulses: within normal limits - Abdominal General gastrointestinal: Present: soft, non-tender, non-distended, normal bowel sounds - Integumentary Integumentary: Present: clear, warm - Musculoskeletal Musculoskeletal: strength equal bilaterally - Psychiatric Psychiatric: appropriate mood/affect, cooperative - Neurologic Neurologic: CNII-XII intact, moves all extremities Plan Activity: advance as tolerated Diet: low salt Additional Instructions: History of chest pain or shortness of breath contact M.D. or go to emergency room. Advised to see private Interior Design Principal to discuss about her history of DVT and PE and the need for anticoagulation at this point Follow up with: RONALD LAKE MD [Primary Care Provider] - 3-5 Days PEPE SKELTON MD [Staff Physician] - 7 Days Prescriptions: amLODIPine 10 mg PO QDAY #30 tablet hydrALAZINE [Apresoline TAB] 50 mg PO BID #90 tablet Aspirin [Aspirin BABY CHEW TAB] 81 mg PO QDAY #30 tab.chew AtorvaSTATin [Lipitor] 40 mg PO QHS #30 tablet Lisinopril [Zestril TAB] 20 mg PO QDAY #30 tablet
--- NOTE | 2019-06-12 15:21 | Progress Note ---
Assessment and Plan Echo reviewed - EF 55-60%, mild LVH. AMI ruled out. Pt reports resolution of chest pain. BPs improved. Per pt report, treadmill stress test done in December of this year at [facility] in [place], [place] was normal. Currently stable cardiac status. Pt may discharge from cardiology standpoint. 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 Chest CTA currently negative for PE. Will defer to primary team. Recommend follow up in our office with Dr. WILMAN Garcia within 1-2 weeks of discharge ([phone]). Pt verbalizes understanding. The patient has been seen in conjunction with Dr. Himanshu Garcia who agrees with the assessment and plan of care. - Patient Problems (1) Chest pain Current Visit: Yes Status: Resolved (2) History of pulmonary embolism Current Visit: Yes Status: Chronic (3) History of DVT (deep vein thrombosis) Current Visit: Yes Status: Chronic (4) History of breast cancer Current Visit: Yes Status: Chronic (5) Uncontrolled hypertension Current Visit: Yes Status: Chronic (6) Medical non-compliance Current Visit: Yes Status: Chronic Subjective Date of service: 06/12/19 Principal diagnosis: cp;htn Interval history: pt resting in bed, chest pain resolved, BPs improved. in SR. Objective Last Vital Signs Temp 97.1 F L 06/12/19 10:49 Pulse 78 06/12/19 12:00 Resp 18 06/12/19 11:00 BP 147/94 06/12/19 10:49 Pulse Ox 97 06/12/19 10:49 - Physical Examination General: No Apparent Distress HEENT: Positive: PERRL, Normocephaly, Mucus Membranes Moist Neck: Positive: neck supple, trachea midline Cardiac: Positive: Reg Rate and Rhythm, S1/S2 Lungs: Positive: clear to auscultation Neuro: Positive: Grossly Intact Abdomen: Negative: Tender Skin: Negative: Rash Musculoskeletal: No Pain Extremities: Absent: edema - Imaging and Cardiology EKG: report reviewed, image reviewed Echo: report reviewed - Telemetry EKG Rhythm: Sinus Rhythm - EKG Sinus rhythms and dysrhythmias: sinus rhythm
== END 2019-06-12 16:22 | disposition home or self-care (01) | DRG 313 ==
LOC: ED 14:03 → 4A 20:37 → OBSVTOIN 06-11 16:13
PROVIDERS: ADMIT Internal Medicine; ATTEND Internal Medicine
DX: R07.89 Other chest pain (principal); I10 Essential (primary) hypertension; Z86.711 Personal history of pulmonary embolism; Z79.82 Long term (current) use of aspirin; Z79.899 Other long term (current) drug therapy; Z88.8 Allergy status to other drugs, medicaments and biological substances; Z85.3 Personal history of malignant neoplasm of breast; Z90.710 Acquired absence of both cervix and uterus; Z90.13 Acquired absence of bilateral breasts and nipples; Z86.718 Personal history of other venous thrombosis and embolism; Z91.19 Patient's noncompliance with other medical treatment and regimen
CPT/HCPCS: 36415; 71045; 71275; 80048; 80061; 84484; 85025; 85379; 93005; 93010; 93306; 93970; 96365; G0378; A9270-GY; J0360; J1170; J1650; J2405; J7030; J7040; Q9967